=== PATIENT | male | born 1965 | race African-American/Black ===

== ENCOUNTER 2019-03-18 08:36 | Emergency (ER) | payer BC, MEDICAID ==
[~2019-03-18] VITALS: Ht 177.8 cm; Wt 75.0 kg
[2019-03-18] MEDS ORDERED: KETOROLAC 30MG/ML VIAL IV ONE (09:45)
[2019-03-18] MEDS ORDERED: TETANUS, DIPHTHERIA, PERTUSSIS VAC/PF 0.5ML (>7YR OLD) IM ONE (09:45)
[2019-03-18] MEDS ORDERED: VANCOMYCIN 1 G PREMIX 200 ML IV SCH (09:45)
[2019-03-18] MEDS ORDERED: GLIPIZIDE 10MG TABLET PO STA (12:09)
[2019-03-18] MEDS ORDERED: METFORMIN HCL 500MG TABLET PO ONE (12:15)
[2019-03-18 13:33] VITALS: BP 148/89
== END 2019-03-18 13:34 | disposition home or self-care (01) ==
LOC: ER 08:36
DX: L03.116 Cellulitis of left lower limb (principal); E11.9 Type 2 diabetes mellitus without complications
CPT/HCPCS: 73590; 82962; 90471; 90715; 93971; 96365; 96375; 99284; J1885; J3370

== ENCOUNTER 2019-03-19 10:51 | Emergency (ER) | payer BC ==
[~2019-03-19] VITALS: Ht 177.8 cm; Wt 75.0 kg
[2019-03-19] MEDS ORDERED: LIDOCAINE HCL 1% 20ML VIAL (Pyxis) INJ INFIL ONE (11:45)
[2019-03-19] MEDS ORDERED: TRAMADOL 50MG TABLET PO ONE (11:45)
[2019-03-19] MEDS ORDERED: CEFTRIAXONE SODIUM 1 G/VIAL IM ONE (11:45)
[2019-03-19 12:22] VITALS: BP 138/96
== END 2019-03-19 12:23 | disposition home or self-care (01) ==
LOC: ER 10:51
DX: L03.116 Cellulitis of left lower limb (principal); E11.9 Type 2 diabetes mellitus without complications
CPT/HCPCS: 96372; 99283; J0696; J3490; Z7610